=== PATIENT | male | born 1970 | race Hispanic/Latino ===

== ENCOUNTER 2019-12-02 11:57 | Emergency (ER) | payer SELFPAY ==
[~2019-12-02 11:57] MED LIST: Iopamidol-370 76% 500 ML 1 ML ONE
[2019-12-02] MEDS ORDERED: Ondansetron PF 4 MG/2 ML Vial ONE (12:23)
[2019-12-02] MEDS ORDERED: Morphine 4 MG/ML VIAL ONE ×3 (12:23→13:06)
[2019-12-02 12:35] LABS: Bacteria/HPF None Seen HPF (None Seen); Bilirubin Negative (Negative); Blood, Urine 1+ (Negative); Clarity Clear (Clear); Glucose, Urine (Dipstick) Normal (Negative); Leukocyte Negative Leu/uL (Negative); Nitrite Negative (Negative); Protein, Urine (Dipstick) Negative (Neg-Trace); RBC/HPF None Seen HPF (0-3); Squamous Epithelial None Seen HPF (0-3); Urobilinogen Normal mg/dL (Less than 2); WBC/HPF None Seen HPF (0-3)
[2019-12-02 12:49] LABS: #Eosinphils 0.2 thou/uL (0.0-0.7); #Lymphocytes 1.1 thou/uL (1.20-3.40); #Monocytes 0.6 thou/uL (0.11-0.59); #Neutrophils 5.3 thou/uL (1.40-6.50); %Basophils 0.5 % (0.0-1.0); %Eosinophils 2.7 % (0.0-10.0); %Lymphocytes 15.7 % (21.0-51.0); %Monocytes 8.3 % (0.0-10.0); %Neutrophils 72.9 % (42.0-75.0); Hemoglobin 15.6 g/dL (14.0-18.0); Mean Corpuscular HGB CONC 34.6 g/dL (32.0-36.0); Mean Corpuscular Hemoglobin 28.2 pg (27.0-31.0); Mean Corpuscular Volume 81.8 fL (78.0-98.0); Mean Platelet Volume 9.2 fL (7.4-10.4); Platelet Count 175 thou/uL (130-400); RBC Distribution Width 12.8 % (11.5-14.5); Red Blood Cell (RBC) Count 5.53 mill/uL (4.70-6.10); White Blood Cell (WBC) Count 7.3 thou/uL (4.8-10.8)
[2019-12-02 13:10] LABS: ALT (SGPT) 21 U/L (8-55); AST (SGOT) 18 U/L (5-34); Albumin 3.9 g/dL (3.5-5.0); Alkaline Phosphatase 74 U/L (40-110); Anion Gap 11 mmol/L (10-20); BUN (Urea Nitrogen) 11 mg/dL (8.9-20.6); Bilirubin, Total 0.7 mg/dL (0.2-1.2); Calc. Creatinine Clearance 0 mL/min (70-130); Calcium 8.3 mg/dL (7.8-10.44); Carbon Dioxide 27 mmol/L (22-29); Chloride 105 mmol/L (98-107); Estimated GFR-MDRD 55; Globulin 2.7 g/dL (2.4-3.5); Glucose 86 mg/dL (70-105); Lipase 32 U/L (8-78); Potassium 3.5 mmol/L (3.5-5.1); Protein, Total 6.6 g/dL (6.0-8.3); Sodium 139 mmol/L (136-145)
--- NOTE | 2019-12-02 14:35 | CT ---
CT ABDOMEN AND PELVIS WITH IV CONTRAST: HISTORY: Abdominal pain. FINDINGS: There are dependent changes in the lung bases. No calcified gallstones are seen. No free air, free fl uid or lymphadenopathy is noted in the abdomen or pelvis. There is fatty infiltration of the liver. N o hepatic mass is seen. No abnormal biliary ductal dilatation is noted. The spleen, pancreas, adrenal glands and right kidney are normal. There is left perinephric inflammatory change and a mildly dilat ed left ureter secondary to a 3 mm distal left ureteric calculus, close to the UVJ. The small loops are not abnormally dilated. A normal appearing appendix is seen. There is colonic div erticulosis without diverticulitis. A small hiatal hernia is present. Small low density lesions in the left kidney, measuring up to 1 cm, are likely cysts. IMPRESSION: 1. A 3 mm left distal ureteric calculus close to the ureterovesicular junction. 2. Colonic diverticulosis. 3. Fatty liver. 4. Small hiatal hernia. 5. Probable small left renal cysts. POS: [facility]
[2019-12-02] MEDS ORDERED: Ketorolac Tromethamine 30 MG/ML VIAL ONE (15:43)
[2019-12-02] MEDS ORDERED: Tamsulosin HCl 0.4 MG CAP PO SCH (15:45)
[2019-12-02] MEDS ORDERED: Lidocaine 2 gm/D5W 500 ml 500 ML IVPB SCH (15:45)
[2019-12-02] MEDS ORDERED: Lidocaine 2% PF 100 mg/5 ml Syringe ONE (15:57)
== END 2019-12-02 16:45 | disposition home or self-care (01) ==
LOC: ERS 11:57
DX: K57.32 Diverticulitis of large intestine without perforation or abscess without bleeding (principal); E11.9 Type 2 diabetes mellitus without complications; I10 Essential (primary) hypertension; M19.90 Unspecified osteoarthritis, unspecified site; J45.909 Unspecified asthma, uncomplicated; F41.9 Anxiety disorder, unspecified; F32.9 Major depressive disorder, single episode, unspecified; Z87.891 Personal history of nicotine dependence; Z79.4 Long term (current) use of insulin
CPT/HCPCS: 36415; 74177; 80053; 81003; 81015; 83605; 83690; 85025; 93005; 96361; 96365; 96375; 96376; J1885; J2001; J2270; J2405; Q9967